=== PATIENT | female | born 1975 | race Caucasian/White ===

== ENCOUNTER 2021-03-12 03:22 | Emergency (ER) | payer OTHER ==
[~2021-03-12] VITALS: Ht 165.1 cm; Wt 71.7 kg
[2021-03-12 03:24] VITALS: BP 160/99
[2021-03-12 04:05] LABS: MICROSCOPIC INDICATED
== END 2021-03-12 05:06 | disposition home or self-care (01) ==
LOC: ED 04:40
DX: R07.89 Other chest pain (principal); I10 Essential (primary) hypertension
CPT/HCPCS: 71046; 81001; 81025; 87086; 99284

== ENCOUNTER 2021-03-21 01:02 | Emergency (ER) | payer SELFPAY ==
[~2021-03-21] VITALS: Ht 165.1 cm; Wt 70.0 kg
[2021-03-21 01:09] VITALS: BP 145/99
[2021-03-21] MEDS ORDERED: FAMOTIDINE 20 MG TABLET PO ONE (02:00)
[2021-03-21] MEDS ORDERED: DIPHENHYDRAMINE 25 MG CAPSULE PO ONE (02:00)
[2021-03-21] MEDS ORDERED: DIPHENHYDRAMINE 25 MG CAPSULE ONE (02:08)
[2021-03-21] MEDS ORDERED: FAMOTIDINE 20 MG TABLET ONE (02:08)
== END 2021-03-21 02:15 | disposition home or self-care (01) ==
LOC: ED 01:30
DX: S40.862A Insect bite (nonvenomous) of left upper arm, initial encounter (principal); S40.861A Insect bite (nonvenomous) of right upper arm, initial encounter; S70.362A Insect bite (nonvenomous), left thigh, initial encounter; S70.361A Insect bite (nonvenomous), right thigh, initial encounter; I10 Essential (primary) hypertension; F17.290 Nicotine dependence, other tobacco product, uncomplicated; W57.XXXA Bitten or stung by nonvenomous insect and other nonvenomous arthropods, initial encounter; Y93.89 Activity, other specified; Y92.89 Other specified places as the place of occurrence of the external cause; Y99.8 Other external cause status
CPT/HCPCS: 99284; J7512; Q0163

== ENCOUNTER 2021-04-04 20:39 | Emergency (ER) | payer SELFPAY ==
[~2021-04-04] VITALS: Ht 165.1 cm; Wt 70.6 kg
[2021-04-04 20:50] VITALS: BP 161/107
[2021-04-04] MEDS ORDERED: KETOROLAC 30 MG/1 ML ONE (21:15)
[2021-04-04] MEDS ORDERED: KETOROLAC 30 MG/1 ML IM ONE (21:30)
== END 2021-04-04 21:30 | disposition home or self-care (01) ==
LOC: ED 21:00
DX: M47.812 Spondylosis without myelopathy or radiculopathy, cervical region (principal); I10 Essential (primary) hypertension; R94.31 Abnormal electrocardiogram [ECG] [EKG]; Z90.89 Acquired absence of other organs
CPT/HCPCS: 93005; 96372; 99283; J1885